=== PATIENT | female | born 1970 | race Caucasian/White ===

== ENCOUNTER 2018-08-31 00:54 | Emergency (ER) | payer OTHER ==
[~2018-08-31] VITALS: Ht 165.1 cm; Wt 72.6 kg
[~2018-08-31 00:54] MED LIST: NOHOMEMEDICATIONS; NORCO 5-325 TA1 EACH PO; PREDNISONE 20 M20 MG PO; ZPAK PO
[2018-08-31] MEDS ORDERED: PREDNISONE50 MG PO (02:12)
[2018-08-31] MEDS ORDERED: HYDROXYZINE HCL25 M1 PO (02:12)
[2018-08-31 02:20] VITALS: BP 133/81
== END 2018-08-31 02:20 | disposition home or self-care (01) ==
LOC: M.ERS 00:54
DX: R22.0 Localized swelling, mass and lump, head (principal); T78.40XA Allergy, unspecified, initial encounter; Z88.5 Allergy status to narcotic agent; Z88.6 Allergy status to analgesic agent; X58.XXXA Exposure to other specified factors, initial encounter